=== PATIENT | female | born 1990 | race Caucasian/White ===

== ENCOUNTER 2016-04-13 19:54 | Emergency (ER) | payer OTHER ==
[2016-04-13 20:05] VITALS: BP 128/84; PULSE 77; TEMP 97.4; BMI 27.4
--- NOTE | 2016-04-13 20:08 | PDOC ---
History of Present Illness - General Chief Complaint: Head/Neck problem Stated Complaint: NECK PAIN/RT HAND NUMB Time Seen by Provider: 04/13/16 20:05 - History of Present Illness Initial Comments: 04/13/16 20:25 Ms. Lee is a 26 y/o female with no PMH who presents to the ED with right sided neck pain and right hand numbness. Pt. states that she woke up this morning and felt some tightness/stiffness in her right neck. Pt. states that she had been moving boxes earlier this week leading to some strain. This afternoon, pt states that while drying her hair she flipped her head over and then the pain became sharp and unbearable. At that time she felt a shooting pain with associated tingling down to her right hand. Pt. took ibuprofen at that time. She states that she has taken 1600mg of Motrin today as well as 1800mg of Tylenol with minimal relief. Pt. states the pain is currently a 9/10, and is slightly improved from this afternoon. Denies any bowel or bladder incontinence, . GENERAL/CONSTITUTIONAL: No fever or chills. No weakness. No weight change. HEAD, EYES, EARS, NOSE AND THROAT: No change in vision. No ear pain or discharge. No sore throat. CARDIOVASCULAR: No chest pain or palpitations. RESPIRATORY: No cough, wheezing, or shortness of breath. GASTROINTESTINAL: No nausea, vomiting, diarrhea or constipation. GENITOURINARY: No dysuria, frequency, or change in urination. MUSCULOSKELETAL: (+) neck and R upper back pain. No joint or muscle swelling or pain. SKIN: No rash or easy bruising. NEUROLOGIC: (+) R palm numbness with decreased sensation. No headache, vertigo, loss of consciousness. PSYCHIATRIC: No depression or anxiety. ENDOCRINE: No increased thirst. No abnormal weight change. HEMATOLOGIC/LYMPHATIC: No anemia, easy bleeding, or history of blood clots. ALLERGIC/IMMUNOLOGIC: No hives or skin allergy. No latex allergy. Past History - Past Medical History Allergies/Adverse Reactions: Allergies Allergy/AdvReac Type Severity Reaction Status Date / Time No Known Allergies Allergy Verified 04/13/16 20:05 Home Medications: Ambulatory Orders Cyclobenzaprine HCl 7.5 mg PO HS #10 tablet 04/13/16 Ibuprofen 800 mg PO TID #30 tablet 04/13/16 Other medical history: Denies - Immunization History Immunization Up to Date: No - Psycho/Social/Smoking Cessation Hx Anxiety: No Suicidal Ideation: No Smoking History: Never smoked Have you smoked in the past 12 months: No Information on smoking cessation initiated: No Hx Alcohol Use: Yes (Occasional) Drug/Substance Use Hx: No Substance Use Type: Alcohol *Physical Exam - Vital Signs Last Vital Signs Temp Pulse Resp BP Pulse Ox 97.4 F L 77 18 128/84 100 04/13/16 20:01 04/13/16 20:01 04/13/16 20:01 04/13/16 20:01 04/13/16 20:01 04/13/16 20:36 - Physical Exam Comments: 04/13/16 20:36 GENERAL: The patient is awake, alert, and fully oriented, in no acute distress. Sitting on hospital bed, slightly hunched over. HEAD: Normal with no signs of trauma. ENT: Pupils equal, round and reactive to light, extraocular movements intact, sclera anicteric, conjunctiva clear. Neck supple. Neck:Tender to palpation of the paraspinatous muscles. ROM decreased, limited lateral rotation, abduction and flexion. LUNGS: Clear to auscultation bilaterally. Normal excursion. No respiratory distress or use of accessory muscles. CV: RRR, S1/S2, no MRG. Cap refill < 2 sec. ABDOMEN: Soft, non-distended, non-tender. EXTREMITIES: (+) tingling in the right palm, sensation decreased. Upper extremity strength 5/5 B/L. Extension Course Coordinator strength finger opposition, okay sign and thumbs up sign intact bilaterally. Normal range of motion in upper and lower extremities. No edema. BACK: Range of motion intact. No changes in gate. (-) rhombergs sign. NEUROLOGICAL: Normal speech, normal gait. CN II-XII grossly intact. PSYCH: Normal mood, normal affect. SKIN: Warm, dry, normal turgor, no rashes or lesions noted. Medical Decision Making - Medical Decision Making 04/13/16 20:43 Ms. Lee is a 26 y/o female with no PMH who presents with what appears to be acute musculoskelatal neck pain. Based on her exam, will order an c-spine x-ray to evaluate the joint spaces given the tingling in her right hand. Will also medicate for pain. Reduce dose of toradol given pt. has taken 1600mg of ibuprofen today. C-spine x-ray 30mg of tordadol for pain management Will re-evaluate. 04/13/16 21:53 Pt. is feeling better with the Toradol. Neck x-ray shows no acute pathology with good spacing between the vertebral bodies. Will discharge home at this time. *DC/Admit/Observation/Transfer Diagnosis at time of Disposition: Cervical radiculopathy - Discharge Dispostion Disposition: HOME Condition at time of disposition: Fair Admit: No - Prescriptions Prescriptions: Cyclobenzaprine HCl 7.5 mg PO HS #10 tablet Ibuprofen 800 mg PO TID #30 tablet - Referrals Referrals: Eduard Carrasco MD [Primary Care Provider] - - Patient Instructions Printed Discharge Instructions: DI for Neck Pain Additional Instructions: You have a right sided cervical radiclopathy (muscle strain affecting the nerve) . Avoid activities that will increase the strain on your neck. Take ibuprofen 800 mg every 8 hours for one week. You may use a heating pad for relief (20 minutes at a time). If you have increasing neck pain, loss of sensation in your right arm, return to the ED. - Post Discharge Activity Work/School Note: Back to Work
[2016-04-13] MEDS ORDERED: KETOROLAC TROMETHAMINE 30 MG/1 ML VIAL IM ONE (20:22)
[2016-04-13] MEDS ORDERED: KETOROLAC TROMETHAMINE 30 MG/1 ML VIAL ONE (20:27)
== END 2016-04-13 22:15 | disposition home or self-care (01) ==
LOC: SUPCPDRO 19:54 → JER 19:54
PROC: 3E0233Z Introduction of Anti-inflammatory into Muscle, Percutaneous Approach (ICD-10-PCS; principal; 2016-04-13)
DX: M54.12 Radiculopathy, cervical region (principal)
CPT/HCPCS: 72050-TC; 84703; 99281-25

== ENCOUNTER 2018-01-02 20:24 | Emergency (ER) | payer OTHER ==
--- NOTE | 2018-01-02 20:40 | PDOC ---
Rapid Medical Evaluation Chief Complaint: Laceration Time Seen by Provider: 01/02/18 20:28 Medical Evaluation: Allergies Allergy/AdvReac Type Severity Reaction Status Date / Time No Known Allergies Allergy Verified 04/13/16 20:05 01/02/18 20:38 I have performed a brief in person evaluation of this patient. The patient present with a CC of: Laceration to first digit right hand. Tetanus is UTD. Pertinent PE findings: Skin: 0.5 cm v shaped lac to the first digit left hand, bleeding controlled. Lungs Clear Heart RRR MS: Attention to first digit right hand. No pain upon palpation. Neuro: Alert Psych: Appropriate affect. The patient will proceed to the [facility] for further evaluation: Discharge Disposition - Diagnosis Laceration - Referrals - Patient Instructions - Post Discharge Activity
[2018-01-02 20:42] VITALS: BP 132/91; PULSE 93; TEMP 98.1; BMI 29.0
--- NOTE | 2018-01-02 21:37 | PDOC ---
History of Present Illness - General Chief Complaint: Laceration Stated Complaint: LACERATION-WORK RELATED Time Seen by Provider: 01/02/18 20:28 History Source: Patient Exam Limitations: No Limitations - History of Present Illness Initial Comments: 01/02/18 21:37 HISTORY OF PRESENT ILLNESS: This is a 27-year-old woman who denies significant medical history presents emergency Department with laceration to right thumb while opening a glass ampule. Patient works as an ICU nurse here at [employer] and was for pain unrelieved with a drip when she broke the ampule slicing her thumb. Patient immediately washed her hands and then presented to emergency department for evaluation. Patient is up-to-date with her tetanus. Patient is right hand dominant. No recent travel or sick contacts. PAST MEDICAL HISTORY: Denies past medical history SURGICAL HISTORY: Denies ALLERGIES: No known drug allergies REVIEW OF SYSTEMS General/Constitutional: Denies fever or chills. Denies weakness, weight change. HEENT: Denies change in vision. Denies ear pain or discharge. Denies sore throat. Cardiovascular: Denies chest pain or shortness of breath. Respiratory: Denies cough, wheezing, or hemoptysis. Gastrointestinal: Denies nausea, vomiting, diarrhea or constipation. Denies rectal bleeding. Genitourinary: Denies dysuria, frequency, or change in urination. Musculoskeletal: Denies joint or muscle swelling or pain. Denies neck or back pain. Skin and breasts: Laceration to right thumb Neurologic: Denies headache, vertigo, loss of consciousness, or loss of sensation. Psychiatric: Denies depression or anxiety. Endocrine: Denies increased thirst. Denies abnormal weight change. Hematologic/Lymphatic: Denies anemia, easy bleeding, or history of blood clots. Allergic/Immunologic: Denies hives or skin allergy. Denies latex allergy. PHYSICAL EXAM General Appearance: Well-appearing, appropriately dressed. No apparent distress , no intoxication. HEENT: EOMI, PERRLA, normal ENT inspection, normal voice, TMs normal, pharynx normal. No conjunctival pallor. No photophobia, scleral icterus. Neck: Supple. Trachea midline. No tenderness, rigidity, carotid bruit, stridor , lymphadenopathy, or thyromegaly. Respiratory/Chest: Lungs CTAB. No shortness of breath, chest tenderness, respiratory distress, accessory muscle use. No crackles, rales, rhonchi, stridor , wheezing, dullness Cardiovascular: RRR. S1, S2. No JVD, murmur, bradycardia, tachycardia. Vascular Pulses: Dorsalis-Pedis (R): 2+, Dorsalis-Pedis (L): 2+ Gastrointestinal/Abdominal: Normal bowel sounds. Abdomen soft, non-distended. No tenderness or rebound tenderness. No organomegaly, pulsatile mass, guarding, hernia, hepatomegaly, splenomegaly. Lymphatic: No adenopathy, tenderness. Musculoskeletal/Extremities: Normal inspection. FROM of all extremities, normal capillary refill. Pelvis Stable. No CVA tenderness. No tenderness to extremities, pedal edema, swelling, erythema or deformity. Integumentary: Approximate one centimeter superficial linear laceration present over the proximal phalanx on the volar aspect of the right thumb. Full sensation distal to injury. Capillary refill is within normal limits Neurologic: assessor II-XII intact. Fully oriented, alert. Appropriate mood/affect. Motor strength 5/5. No appreciable EOM palsy, facial droop or sensory deficit. Past History - Past Medical History Allergies/Adverse Reactions: Allergies Allergy/AdvReac Type Severity Reaction Status Date / Time No Known Allergies Allergy Verified 01/02/18 20:41 Home Medications: Ambulatory Orders NK [No Known Home Medication] 01/02/18 COPD: No - Immunization History Immunization Up to Date: No - Suicide/Smoking/Psychosocial Hx Smoking History: Never smoked Have you smoked in the past 12 months: No Information on smoking cessation initiated: No Hx Alcohol Use: No Drug/Substance Use Hx: No Substance Use Type: None *Physical Exam - Vital Signs Last Vital Signs Temp Pulse Resp BP Pulse Ox 98.1 F 93 H 21 H 132/91 100 01/02/18 20:38 01/02/18 20:38 01/02/18 20:38 01/02/18 20:38 01/02/18 20:38 Procedures - Consent Consent obtained: Verbal, From Patient - Laceration/Wound Repair Right Volar Finger 1st digit Wound Length: to 2.5 cm Wound Explored: clean Wound's Depth, Shape: superficial Irrigated w/ Saline: Yes Betadine Prep: Yes Anesthesia: 1% Lidocaine Amount of Anesthetic (ccs): 2 Wound Debrided: minimal Wound Repaired With: Sutures Suture Size/Type: 5:0, other Number of Sutures: 3 Layer Closure: No Sterile Dressing Applied: Yes Splint Applied: Yes Sling Applied: No Progress: 01/02/18 21:33 patient tolerated well ED Treatment Course - RADIOLOGY Radiology Studies Ordered: Category Date Time Status FINGER(S) RIGHT [RAD] Stat Radiology 01/02/18 20:58 Ordered Medical Decision Making - Medical Decision Making 01/02/18 21:33 A/P: 27-year-old woman without significant medical history with 1 cm laceration to the volar aspect of the right thumb ~1 cm superficial linear laceration to the volar aspect of the right thumb X-ray Laceration repair-see procedure note for details Discharge home *DC/Admit/Observation/Transfer Diagnosis at time of Disposition: Laceration - Discharge Dispostion Disposition: HOME Condition at time of disposition: Stable Decision to Admit order: No - Referrals - Patient Instructions Printed Discharge Instructions: DI for Laceration Repair Additional Instructions: Rest, elevate, avoid strenuous activity or heavy lifting until sutures are removed Leave dressing on for the next 24 hours, Then may remove dressing gently and wash area with soap and water. Reapply bacitracin ointment and dressing daily for the next 5 days On day #6 keep the wound protected and cover as needed until sutures are removed allowing wound to start to dry May use Tylenol or Motrin for pain relief - Post Discharge Activity
== END 2018-01-02 21:49 | disposition home or self-care (01) ==
LOC: JERFT 20:24
PROC: 0HQGXZZ Repair Left Hand Skin, External Approach (ICD-10-PCS; principal; 2018-01-02)
PROC: 2W3GX1Z Immobilization of Right Thumb using Splint (ICD-10-PCS; 2018-01-02)
DX: S61.011A Laceration without foreign body of right thumb without damage to nail, initial encounter (principal); W25.XXXA Contact with sharp glass, initial encounter; Y93.89 Activity, other specified; Y92.238 Other place in hospital as the place of occurrence of the external cause; Y99.0 Civilian activity done for income or pay
CPT/HCPCS: 73140-TC-RT-FY; 99281-25